=== PATIENT | male | born 2000 | race Two or more races ===

== ENCOUNTER → 2023-12-30 | Emergency (ER) | payer OTHER ==
[~2023-12-30] VITALS: Ht 180.3 cm; Wt 70.3 kg
[~2023-12-30] MED LIST: KETOROLAC TROMETHAMINE 30 MG VIAL IM STA
== END | disposition home or self-care (01) ==
LOC: ER 10:22
DX: R07.81 Pleurodynia (principal); V90.89XA Drowning and submersion due to other accident to unspecified watercraft, initial encounter; Y93.18 Activity, surfing, windsurfing and boogie boarding; Y92.89 Other specified places as the place of occurrence of the external cause